=== PATIENT | male | born 1995 | race Caucasian/White ===

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

== ENCOUNTER 2017-03-18 20:10 | Emergency (ER) | payer BC ==
[~2017-03-18] VITALS: Ht 193 cm; Wt 90.0 kg
[2017-03-18 20:24] VITALS: BP 135/114; PULSE 136; TEMP 36.5; O2SAT 94; Ht 193 cm; Wt 90.0 kg
--- NOTE | 2017-03-18 21:28 | EMERGENCY ROOM VISIT NOTE ---
History Report prepared by Dejuan: Lorri Kwon Under the Supervision of: Dr. Kody Carpenter M.D. First contact with patient: 20:28 Chief Complaint: SEIZURE Stated Complaint: SEIZURE Nursing Triage Summary: patient states he had been up for approx 35 hours to study for exam, used a friends adderall prescription. today got to sleep a few hours but roommate called due to patient having a a minute of seizure like activity. no hx of seizure. patient denies any complaints at this time. 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 He had been up for 35 hours to study for an exam. He also took his friend's Adderall 2 days ago. He is unsure when he fell asleep today, but had slept for a few hours. His roommate called EMS because he started having seizure like activity for around 1 minute. He denies any history of seizure. He has taken Adderall in the past. He currently denies any complaints. He feels like he might have a fever. He admits to alcohol use on the weekends. 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 A total of 10 systems reviewed and were otherwise negative. Past Medical & Surgical Medical Problems: (1) No chronic diseases present Family History No pertinent family history stated. Social History Smoking Status: Current Some Day Smoker Alcohol Use: occasionally Marital Status: single Housing Status: lives with roommate Occupation Status: [employer] student Current/Historical Medications No Active Prescriptions or Reported Meds Allergies Coded Allergies: No Known Allergies (Unverified , 03/18/17) Physical Exam Vital Signs Date Time Temp Pulse Resp B/P (MAP) Pulse Ox O2 Delivery O2 Flow Rate FiO2 03/18/17 20:24 36.5 136 18 135/114 94 Room Air 03/18/17 20:17 131 Physical Exam GENERAL: Patient is a healthy-appearing well-nourished male, diaphoretic HEAD: Normocephalic atraumatic EYES: Ocular movements intact pupils equal and react to light OROPHARYNX mucous membranes are moist no exudates present no erythema or edema present NECK: Supple no nuchal rigidity no evidence of meningitis or encephalitis on exam CHEST: Good equal expansion LUNGS: Clear and equal to auscultation CARDIAC: Normal S1 and S2 ABDOMEN: Soft nontender no guarding BACK: No CVA tenderness EXTREMITIES: No pain upon palpation normal muscle strength in all groups no clubbing cyanosis or edema NEURO: Patient is following commands and answering questions appropriately. Alert and oriented x3 Cranial Nerves 2-12 grossly intact Medical Decision & Procedures ED Course 2030: Past medical records reviewed. The patient was evaluated in room B9. A complete history and physical examination was performed. I asked to speak with his parents and he refused. I recommended CT and lab work and he refused. I discussed the treatment plan with the patient. He verbalizes agreement and understanding. The patient is ready for discharge. Medical Decision Differential diagnosis: Etiologies such as infection, hypoglycemia, electrolyte abnormalities, cardiac sources, intracerebral event, trauma, toxicologic, neurologic, as well as others were entertained. This is a 21-year-old male who presents emergency department after seizure-like activity. I suspect it was due to the fact that the patient had not slept 30 hours and was taking Adderall. Despite this I strongly recommended to the patient that he receive a CAT scan of the head as well as laboratory and electrolyte work. The patient is adamantly refusing this. I also tried to get the patient's permission to speak with his parents however the patient is again adamantly refusing this. He does wish to follow-up with neurology. I stressed no driving until follow-up with neurology. Medication Reconcilliation Current Medication List: was personally reviewed by me Blood Pressure Screening Patient's blood pressure: Elevated blood pressure Blood pressure disposition: Elevated BP felt to be situational Impression Primary Impression: Seizure Scribe Attestation The scribe's documentation has been prepared under my direction and personally reviewed by me in its entirety. I confirm that the note above accurately reflects all work, treatment, procedures, and medical decision making performed by me. Departure Information Dispostion Against Medical Advice Prescriptions No Active Prescriptions or Reported Meds Referrals No Doctor, Assigned (PCP) Claudette Antonio M.D. Forms HOME CARE DOCUMENTATION FORM, IMPORTANT VISIT INFORMATION Patient Instructions ED Seizure New Onset Unk Cause, My [facility] Additional Instructions STOP taking Adderall STRONGLY recommend you discuss this visit with your parents Follow up with Dr Antonio's office No driving until follow up. You have been examined and treated today on an emergency basis only. This is not a substitute for, or an effort to provide, complete comprehensive medical care. It is impossible to recognize and treat all injuries or illnesses in a single emergency department visit. It is therefore important that you follow up closely with [facility]. Call as soon as possible for an appointment. Thank you for your time and consideration. I look forward to speaking with you again soon. Please don't hesitate to call us if you have any questions.
== END 2017-03-18 20:52 | disposition home or self-care (01) ==
LOC: EDBD 20:10 → C.EDB 20:11
DX: R56.9 Unspecified convulsions (principal); F17.210 Nicotine dependence, cigarettes, uncomplicated; Z79.899 Other long term (current) drug therapy

== ENCOUNTER 2017-08-15 21:47 | Emergency (ER) | payer BC ==
[~2017-08-15] VITALS: Ht 190.5 cm; Wt 100.3 kg
[2017-08-15 21:51] VITALS: BP 121/80; TEMP 36.4; Ht 190.5 cm; Wt 100.3 kg
[2017-08-15] MEDS ORDERED: CYCLOBENZAPRINE HCL 10 MG TAB PO STA (22:03)
[2017-08-15] MEDS ORDERED: KETOROLAC TROMETHAMINE 60 MG/2 ML VIAL IM STA (22:03)
[2017-08-15] MEDS ORDERED: LEVE500T13 PO (22:08)
[2017-08-15] MEDS ORDERED: CYCL10TA6 PO (22:31)
[2017-08-15 22:43] VITALS: PULSE 95; O2SAT 96
--- NOTE | 2017-08-15 23:37 | EMERGENCY ROOM VISIT NOTE ---
History Report prepared by Dejuan: Harjinder Parks Under the Supervision of: Dr. Nigel Mckay M.D. First contact with patient: 21:56 Chief Complaint: NECK PAIN Stated Complaint: NECK AND SHOULDER PAIN AFTER FALL FROM SEIZURE History of Present Illness The patient is a 22 year old male who presents to the Emergency Room with complaints of worsening pain in his right shoulder/clavicle and neck that onset 8 days ago, following a seizure episode with a traumatic fall. The patient states that he was walking out to get the mail at his house 8 days ago when he had a seizure and fell backward onto some rocks. The patient states that he hit his head on the rocks and went to the Emergency Department following the episode to have shay placed in his head. Since the fall he is now experiencing the pain in his left shoulder/clavicle and neck. The pain is worse when he lays down at night, which has made it hard for him to sleep. He denies any numbness or weakness in his extremities. This was the second seizure the patient has had. He had his first episode in February of last year, he is currently taking Keppra to control the seizure activity. He denies any headache. 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 ) Associated Symptoms: No weakness, No numbness Review of Systems See HPI for pertinent positives & negatives. A total of 10 systems reviewed and were otherwise negative. Past Medical & Surgical Medical Problems: (1) No chronic diseases present Hx of seizures Social History Smoking Status: Current Some Day Smoker Alcohol Use: occasionally Marital Status: single Housing Status: lives with roommate Occupation Status: [employer] student Current/Historical Medications Scheduled Levetiracetam (Keppra), 500 MG PO BID Scheduled PRN Cyclobenzaprine Hcl (Flexeril), 10 MG PO Q8 PRN for Pain Allergies Coded Allergies: No Known Allergies (Unverified , 08/15/17) Physical Exam Vital Signs Date Time Temp Pulse Resp B/P (MAP) Pulse Ox O2 Delivery O2 Flow Rate FiO2 08/15/17 22:43 95 96 08/15/17 21:51 36.4 83 18 121/80 98 Room Air Physical Exam Constitutional: Vital signs reviewed. Eyes: Pupils are equal round reactive to light. Conjunctiva are noninjected. ENT: Pharynx is clear without erythema or exudate. Mucous membranes are moist. Neck supple without meningeal signs. No midline tenderness to the cervical spine. Respiratory: Clear to auscultation bilaterally. Breath sounds are equal bilaterally. Cardiovascular: Regular rate and rhythm. No rubs or gallops. GI: Soft, nondistended and nontender. Bowel sounds are present. Musculoskeletal: There is mild right shoulder tenderness. Integumentary: No cyanosis. Neurological: The patient is awake and alert. Cranial nerves II-XII are intact. Motor is 5 out of 5 all extremities. Sensation is intact to light touch all extremities. Normal speech. No pronator drift. No limb ataxia. Psychiatric: Normal affect. Medical Decision & Procedures Medications Administered Medications (Trade) Dose Ordered Sig/Shane Route Start Time Stop Time Status Last Admin Dose Admin Ketorolac Tromethamine (Toradol Inj) 30 mg NOW STAT IM 08/15/17 22:03 08/15/17 22:05 DC 08/15/17 22:15 30 MG Cyclobenzaprine HCl (Flexeril Tab) 10 mg NOW STAT PO 08/15/17 22:03 08/15/17 22:05 DC 08/15/17 22:15 10 MG ED Course 2156: The patient was evaluated in room A10. A complete history and physical exam was performed. 2203: Ordered Flexeril 10 mg PO, Toradol 30 mg IM. 2218: The patine is currently refusing x-rays because he already had them following the seizure and his hospital visit while at home. His mother called and does not want him to get the imaging. 2232: I spoke with the patient. He does not want any x-rays done as his mother said he has a MRI scheduled. The patient would just like something to help him sleep with the pain. He will be discharged home. Medical Decision This is a 22-year-old male who presents with neck pain after fall. Differential diagnosis includes contusion, strain, fracture. I did perform a limited focused review of portions of the patient's old chart on the electronic medical record. The patient was seen in the ER in February of last year for a seizure. I did evaluate the patient as noted above. The patient is presenting with neck pain after falling 8 days ago. He is neurologically intact. He has some very mild tenderness to his right shoulder. I did originally plan on obtaining x- rays of the shoulder and cervical spine but he later talked to his mother and told me that he had already had these imaging studies done when he was initially seen in the emergency department after his seizure. I canceled the x- rays. I did treat him with Toradol IM as well as Flexeril. He does have a MRI of his neck scheduled within the next few days. He was given a prescription for Flexeril and discharged in good condition. [place] Drug Monitoring Program Search Results: patient reviewed within database, no issues identified Medication Reconcilliation Current Medication List: was personally reviewed by me Blood Pressure Screening Patient's blood pressure: Normal blood pressure Impression Primary Impression: Neck pain Scribe Attestation The scribe's documentation has been prepared under my direct and personally reviewed by me in its entirety. I confirm that the note above accurately reflects all work, treatment, procedures, and medical decision making performed by me. Departure Information Dispostion Home / Self-Care Prescriptions Cyclobenzaprine Hcl (FLEXERIL) 10 Mg Tab 10 MG PO Q8 Y for Pain, #15 TAB Prov: Nigel Mckay M.D. 08/15/17 Referrals No Doctor, Assigned (PCP) Forms HOME CARE DOCUMENTATION FORM, IMPORTANT VISIT INFORMATION, WORK / SCHOOL INSTRUCTIONS Patient Instructions My [facility] Additional Instructions You have been examined and treated today on an emergency basis only. This is not a substitute for, or an effort to provide, complete comprehensive medical care. It is impossible to recognize and treat all injuries or illnesses in a single emergency department visit. It is therefore important that you follow up closely with your physician. Call as soon as possible for an appointment. Return for worsening symptoms or if you develop fever, vomiting, chest pain, loss of control of your bowel or bladder, numbness or weakness to your arms or legs, numbness to your private area, difficulty urinating, or any other concerning symptoms.
== END 2017-08-15 22:47 | disposition home or self-care (01) ==
LOC: C.EDB 21:48 → C.EDA 22:47
DX: M54.2 Cervicalgia (principal); M25.511 Pain in right shoulder; W01.198D Fall on same level from slipping, tripping and stumbling with subsequent striking against other object, subsequent encounter; F17.200 Nicotine dependence, unspecified, uncomplicated